=== PATIENT | female | born 1960 | race Caucasian/White ===

== ENCOUNTER 2016-12-04 09:56 | Emergency (ER) | payer BC ==
[2016-12-04 10:36] VITALS: BP 133/80
--- NOTE | 2016-12-04 11:21 | UC ---
Headache HPI - HPI Summary HPI Summary: headache x 2 days, which she attributes to sinus pressure. She has had a similar headache in the past, and responded to antibiotics. Onset of pain in the right temporal area, now has more pain in both temples. No photophobia, nausea, neck stiffness or scotoma. Denies personal or family hx of migraine. Comes today because of the severity of the pain, and would like relief of this. Poor sleep last night due to this. had some relief of pain with ibuprofen 400mg. - History Of Current Complaint Chief Complaint: UCHeadache Stated Complaint: HEADACHE Time Seen by Provider: 12/04/16 11:10 Hx Obtained From: Patient, Family/Waiter/[employer] - here with her . ?: No Onset/Duration: Gradual Onset, Lasting Days - 1.5 Initially Headache Was: Initial Pain Scale(0-10)= - 8, Moderate Currently Pain Is: Current Pain Scale(0-10)= - 5 Timing: Constant Character: Sharp, Throbbing Location of Headache: Temporal - Allergies/Home Medications Allergies/Adverse Reactions: Allergies Allergy/AdvReac Type Severity Reaction Status Date / Time No Known Allergies Allergy Verified 12/04/16 10:36 Home Medications: Home Medications Ibuprofen TAB* [Advil TAB*] 200 mg PO Q6H PRN 12/04/16 [History Confirmed ] PMH/Surg Hx/FS Hx/Imm Hx Previously Healthy: Yes - Surgical History Surgical History: Yes Surgery Procedure, Year, and Place: gall bladder - Family History Known Family History: Positive: Cardiac Disease - mother has had bypass, Other - father living, healthy - Social History 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 No diplopia. ENT: Negative Respiratory: Negative Cardiovascular: Negative Gastrointestinal: Negative Genitourinary: Negative Motor: Negative Neurovascular: Negative Musculoskeletal: Negative Neurological: Headache, Other - no dizziness, no trauma. Psychological: Negative All Other Systems Reviewed And Are Negative: Yes Physical Exam Triage Information Reviewed: Yes Appearance: Pain Distress - moderate., Obese Vital Signs: Initial Vital Signs Temp 97.7 F 12/04/16 10:32 Pulse 59 12/04/16 10:32 Resp 14 12/04/16 10:32 BP 133/80 12/04/16 10:32 Pulse Ox 99 12/04/16 10:32 Eyes: Positive: Conjunctiva Clear, Other: - full normal extraocular movements, no nystagmus. WES, no photophobia. ENT: Positive: Pharynx normal, TMs normal Neck: Positive: Supple, Nontender, No Lymphadenopathy Respiratory: Positive: Lungs clear, Normal breath sounds Cardiovascular: Positive: RRR, No Murmur Musculoskeletal Exam: Normal Neurological: Positive: Alert, Muscle Tone Normal, Other: - CNII-XII normal. Normal gait, no pronator drift. Normal finger to nose movements without tremor, no past pointing. Psychological Exam: Normal Skin Exam: Normal Re-Evaluation - Re-Evaluation First Eval Re-Evaluation Time: 12:05 Change: Improved - mild improvement post toradol, given about 10 minutes prior. Headache Course/Dx - Course Course Of Treatment: nsaid's for pain. will use augmentin for presumed sinusitis. - Differential Dx/Diagnosis Differential Diagnosis/HQI/PQRI: Migraine, Sinus Headache Provider Diagnoses: sinus headache/sinusitis. Discharge - Discharge Plan Condition: Stable Disposition: HOME Prescriptions: Amoxicillin (*) [Amoxicillin 875 MG (*)] 875 mg PO BID #20 tab Additional Instructions: The pain medication (toradol) which you have had here should last about 6 hours. You can resume ibuprofen use after 6 pm, taking 600mg every 6 hours for seveal days if needed. Complete the full course of antibiotics. Your blood pressure is mildly elevated here today, and you should have a repeat blood pressure within the month.
[2016-12-04] MEDS ORDERED: Ondansetron ODT TAB* 4 MG PO ONE (11:28)
[2016-12-04] MEDS ORDERED: Ketorolac INJ* 60 MG/2 ML VIAL IM ONE (11:28)
== END 2016-12-04 12:20 | disposition home or self-care (01) ==
LOC: UCCORT 09:56
DX: J01.90 Acute sinusitis, unspecified (principal); B96.89 Other specified bacterial agents as the cause of diseases classified elsewhere; R03.0 Elevated blood-pressure reading, without diagnosis of hypertension
CPT/HCPCS: 96372; 99202; A9270-GY; G0463; J1885

== ENCOUNTER 2017-06-21 20:41 | Emergency (ER) | payer BC ==
[2017-06-21 21:04] VITALS: BP 125/82
[2017-06-21] MEDS ORDERED: Sulfamethox/Trimethoprim DS 800/160* TAB PO ONE (21:41)
--- NOTE | 2017-06-21 21:48 | UC ---
Complaint Female HPI - HPI Summary HPI Summary: URINARY FREQUENCY, URGENCY SINCE LAST NIGHT. PRESSURE IN BLADDER. NO FEVER. NO BACK PAIN. NO ABDOMINAL PAIN. NO NEW MEDICATIONS. NO HISTORY OF KIDNEY STONES. - History Of Current Complaint Chief Complaint: UCGeneralIllness Stated Complaint: URINARY Time Seen by Provider: 06/21/17 21:34 Hx Obtained From: Patient, Family/Acid Cleaner ?: No Onset/Duration: Sudden Onset, Lasting Hours Timing: Lasting Hours Severity Initially: Mild Severity Currently: Mild Character: Dull Aggravating Factor(s): Urination Associated Signs And Symptoms: Negative: Fever, Back Pain, Vaginal Bleeding/ Discharge, Vaginal Discharge, Nausea, Vomiting(# Of Episodes =) - Risk Factors Ectopic Risk Factor: Negative - Allergies/Home Medications Allergies/Adverse Reactions: Allergies Allergy/AdvReac Type Severity Reaction Status Date / Time No Known Allergies Allergy Verified 06/21/17 21:04 PMH/Surg Hx/FS Hx/Imm Hx Previously Healthy: Yes - Surgical History Surgical History: Yes Surgery Procedure, Year, and Place: gall bladder - Family History Known Family History: Positive: Cardiac Disease - mother has had bypass, Other - father living, healthy - Social History Occupation: Works From/At Home Lives: With Family Alcohol Use: None Substance Use Type: None Smoking Status (MU): Never Smoked Tobacco Review of Systems Constitutional: Negative Skin: Negative Eyes: Negative ENT: Negative Respiratory: Negative Cardiovascular: Negative Gastrointestinal: Negative Genitourinary: Dysuria, Frequency, Urgency Motor: Negative Neurovascular: Negative Musculoskeletal: Negative Neurological: Negative Psychological: Negative Is Patient Immunocompromised?: No All Other Systems Reviewed And Are Negative: Yes Physical Exam Triage Information Reviewed: Yes Appearance: Well-Appearing, No Pain Distress, Well-Nourished Vital Signs: Initial Vital Signs Temp 98.1 F 06/21/17 20:58 Pulse 65 06/21/17 20:58 Resp 17 06/21/17 20:58 BP 125/82 06/21/17 20:58 Pulse Ox 99 06/21/17 20:58 Vital Signs Reviewed: Yes Eye Exam: Normal ENT Exam: Normal Dental Exam: Normal Neck exam: Normal Neck: Positive: Supple, Nontender, No Lymphadenopathy Respiratory Exam: Normal Respiratory: Positive: Chest non-tender, Lungs clear, Normal breath sounds Cardiovascular Exam: Normal Cardiovascular: Positive: RRR, No Murmur, Pulses Normal Abdominal Exam: Normal Abdomen Description: Positive: Nontender, No Organomegaly, Soft. Negative: CVA Tenderness (R), CVA Tenderness (L) Musculoskeletal Exam: Normal Neurological Exam: Normal Psychological Exam: Normal Skin Exam: Normal Complaint Female Dx - Differential Dx/Diagnosis Differential Diagnosis/HQI/PQRI: Cervicitis, Renal Colic, Urinary Tract Infection Provider Diagnoses: DYSURIA Discharge - Discharge Plan Condition: Stable Disposition: HOME Prescriptions: Sulfamethox/Trimethoprim DS* [Bactrim DS 800/160 TAB*] 1 tab PO BID #10 tab Patient Education Materials: Dysuria (ED) Referrals: Moris Sanchez MD [Primary Care Provider] - Additional Instructions: PLEASE SEEK EVALUATION AT EMERGENCY DEPARTMENT IF SYMPTOMS CONTINUE, WORSEN, OR IF NEW SYMPTOMS DEVELOP. FOLLOW UP WITH YOUR PRIMARY CARE PROVIDER IF SYMPTOMS IMPROVE.
== END 2017-06-21 21:50 | disposition home or self-care (01) ==
LOC: UCCORT 20:41
DX: R30.0 Dysuria (principal)
CPT/HCPCS: 81003; 87086; 99212; A9270-GY; G0463

== ENCOUNTER 2018-05-20 19:46 | Emergency (ER) | payer BC ==
[2018-05-20 20:19] VITALS: BP 134/84
--- NOTE | 2018-05-20 20:24 | UC ---
Throat Pain/Nasal Bijan HPI - HPI Summary HPI Summary: 57-year-old female presents with daughter reporting 4 day history of low-grade fever (100.5 F) and sore throat. Denies ear pain, nasal congestion, nasal discharge, dysphagia, cough, chest pain, shortness breath, abdominal pain, nausea, or vomiting. - History of Current Complaint Chief Complaint: UCRespiratory Stated Complaint: SORE THROAT Time Seen by Provider: 05/20/18 20:17 Hx Obtained From: Patient Onset/Duration: Gradual Onset, Lasting Days - 4 Severity: Moderate Pain Intensity: 7 Cough: None Associated Signs & Symptoms: Positive: Fever. Negative: Dysphagia, Hoarseness, Sinus Discomfort, Nasal Discharge, Vomiting, Rash - Allergies/Home Medications Allergies/Adverse Reactions: Allergies Allergy/AdvReac Type Severity Reaction Status Date / Time No Known Allergies Allergy Verified 05/20/18 20:17 Home Medications: Home Medications NK [No Home Medications Reported] 05/20/18 [History Confirmed 05/20/18] PMH/Surg Hx/FS Hx/Imm Hx Previously Healthy: Yes - Denies significant PMH - Surgical History Surgical History: Yes Surgery Procedure, Year, and Place: gall bladder. varicose veins - Family History Known Family History: Positive: Cardiac Disease - mother has had bypass, Other - father living, healthy - Social History Occupation: Employed Full-time Lives: With Family Alcohol Use: None Substance Use Type: None Smoking Status (MU): Never Smoked Tobacco Review of Systems All Other Systems Reviewed And Are Negative: Yes Constitutional: Positive: Fever Skin: Positive: Negative Eyes: Positive: Negative ENT: Positive: Sore Throat Respiratory: Positive: Negative Cardiovascular: Positive: Negative Gastrointestinal: Positive: Negative Is Patient Immunocompromised?: No Physical Exam Triage Information Reviewed: Yes Appearance: Well-Appearing, No Pain Distress, Well-Nourished Vital Signs: Initial Vital Signs Temp 98.6 F 05/20/18 20:17 Pulse 90 05/20/18 20:17 Resp 16 05/20/18 20:17 BP 134/84 05/20/18 20:17 Pulse Ox 100 05/20/18 20:17 Eyes: Positive: Conjunctiva Clear. Negative: Discharge ENT: Positive: Hearing grossly normal, Pharyngeal erythema, TMs normal, Uvula midline. Negative: Nasal congestion, Nasal drainage, Tonsillar swelling, Tonsillar exudate, Trismus, Muffled voice, Sinus tenderness Neck: Positive: Supple, Nontender, Enlarged Nodes @ - anterior cervical Respiratory: Positive: Lungs clear, Normal breath sounds, No respiratory distress Cardiovascular: Positive: RRR, No Murmur Neurological: Positive: Alert Skin Exam: Normal Throat Pain/Nasal Course/Dx - Course Course Of Treatment: 57 year old female presents with 4 day history of low grade fever and sore throat. Currently afebrile. Exam reveals some mild pharyngeal erythema without tonsillar swelling or exudate and mild anterior cervical lymphadenopathy. Rapid strep negative. Likely viral in origin. Recommend symptomatic treatment. She is to follow-up with primary care provider in 7 days if symptoms persist. Warning symptoms were reviewed with patient and daughter. Verbalized understanding and agreed with plan of care. - Differential Dx/Diagnosis Differential Diagnosis/HQI/PQRI: Pharyngitis, Tonsillitis, URI Provider Diagnoses: Viral pharyngitis Discharge - Sign-Out/Discharge Documenting (check all that apply): Patient Departure All imaging exams completed and their final reports reviewed: No Studies - Discharge Plan Condition: Stable Disposition: HOME Patient Education Materials: Pharyngitis (ED) Referrals: Moris Sanchez MD [Primary Care Provider] - 7 Days (If no improvement in symptoms.) Additional Instructions: Your rapid strep test in the clinic today was negative. Your symptoms are likely from a viral infection. Viral infections do not respond to antibiotics and typically run their course over 7-10 days. Use salt water gargles several times a day for your sore throat. Take acetaminophen (Tylenol) or ibuprofen (Advil, Motrin) according to directions as needed for fever or pain. You may also use Chloraseptic spray or Cepacol lozenges for some temporary pain relief from your sore throat. Follow-up with your primary care provider in 7 days if symptoms persist. Seek immediate medical attention if you have a persistent fever greater than 100.5 F despite taking acetaminophen or ibuprofen, you are unable to swallow, has difficulty breathing, or have any worsening of symptoms. - Billing Disposition and Condition Condition: STABLE Disposition: Home
== END 2018-05-20 20:44 | disposition home or self-care (01) ==
LOC: UCCORT 19:46
DX: J02.8 Acute pharyngitis due to other specified organisms (principal)
CPT/HCPCS: 87651; 99211; G0463